=== PATIENT | male | born 1960 | race Caucasian/White ===

== ENCOUNTER 2022-07-25 10:56 | Inpatient (IN) | payer SELFPAY ==
[~2022-07-25] VITALS: Ht 170.2 cm; Wt 65.8 kg
[2022-07-25] MEDS ORDERED: SODIUM CHLORIDE FLUSH 10 ML SYR IV PRN (11:30)
[2022-07-25] MEDS ORDERED: ASPIRIN 81 MG CHEW TAB PO ONE ×4 (11:30→14:30)
[2022-07-25 12:50] LABS: BASOPHILS % 0.6 % (0.0-1.0); EOSINOPHILS # (AUTO) 0.2 (0.0-0.4); EOSINOPHILS % 3.4 % (0.0-6.0); HEMATOCRIT 34.9 % (38.2-49.6); HEMOGLOBIN 10.9 g/dL (14.0-18.0); LYMPHOCYTES # (AUTO) 1.3 (1.0-3.2); LYMPHOCYTES % 19.7 % (18.0-39.1); MEAN CORPUSCULAR HEMOGLOBIN 29.1 pg (28-32); MEAN CORPUSCULAR HGB CONC 31.2 g/dL (31-35); MEAN CORPUSCULAR VOLUME 93.1 fL (81-99); MONOCYTES # (AUTO) 0.6 (0.2-0.8); MONOCYTES % 9.2 % (4.4-11.3); NEUTROPHILS # (AUTO) 4.3 (2.1-6.9); NEUTROPHILS % 66.8 % (38.7-80.0); PLATELET COUNT 287 x10e3/uL (140-360); RED BLOOD COUNT 3.75 x10e6/uL (4.3-5.7); RED CELL DISTRIBUTION WIDTH 11.8 % (11.7-14.4)
[2022-07-25 13:01] LABS: ALBUMIN 3.1 g/dL (3.5-5.0); ALBUMIN/GLOBULIN RATIO 0.8 (0.8-2.0); ANION GAP 13.8 mmol/L (8-16); CALCIUM 8.7 mg/dL (8.4-10.2); CREATININE, SERUM 0.88 mg/dL (0.72-1.25); POTASSIUM 3.8 mmol/L (3.5-5.1)
[2022-07-25] MEDS ORDERED: ONDANSETRON HCL INJ 2MG/ML 2ML 2 MG/ML VIAL IV PRN ×2 (14:30→18:15)
[2022-07-25] MEDS ORDERED: SODIUM CHLORIDE FLUSH 10 ML SYR INJ PRN (14:30)
[2022-07-25 17:19] LABS: CREATINE KINASE MB 1.7 ng/mL (0-5.0)
[2022-07-25 17:28] VITALS: BP 161/96
[2022-07-25 17:33] VITALS: BP 161/96
[2022-07-25 17:34] VITALS: BP 161/96
[2022-07-25] MEDS ORDERED: METOPROLOL TARTRATE INJ 1 MG/ML VIAL IV PRN (18:15)
[2022-07-25] MEDS ORDERED: POLYETHYLENE GLYCOL 3350 17 GM PACK PO PRN (18:15)
[2022-07-25] MEDS ORDERED: ACETAMINOPHEN 325 MG TAB PO PRN (18:15)
[2022-07-25] MEDS ORDERED: TEMAZEPAM 7.5 MG CAP PO PRN (18:15)
[2022-07-25] MEDS: INSULIN REGULAR, HUMAN 100 UNIT/1 ML SQ SCH ×2 (18:30→21:19)
[2022-07-25] MEDS ORDERED: DEXTROSE 50% SYRINGE 50 ML IV PRN (18:30)
[2022-07-25] MEDS: DOCUSATE SODIUM 100 MG CAP PO SCH (18:51)
[2022-07-25] MEDS: FAMOTIDINE 20 MG TAB PO SCH (18:52)
[2022-07-25 20:00] VITALS: BP 139/84
[2022-07-25 21:00] VITALS: BP 139/84
[2022-07-25] MEDS: NYSTATIN/TRIAMCINOLONE 15 GM CR TOP SCH (21:00)
[2022-07-26] VITALS (7 sets, daily range): BP systolic 99–160; BP diastolic 62–91
[2022-07-26 05:46] LABS: BASOPHILS # (AUTO) 0.1 (0.0-0.1); BASOPHILS % 0.5 % (0.0-1.0); EOSINOPHILS # (AUTO) 0.1 (0.0-0.4); EOSINOPHILS % 1.3 % (0.0-6.0); HEMATOCRIT 35.6 % (38.2-49.6); HEMOGLOBIN 11.1 g/dL (14.0-18.0); LYMPHOCYTES # (AUTO) 1.2 (1.0-3.2); LYMPHOCYTES % 11.5 % (18.0-39.1); MEAN CORPUSCULAR HEMOGLOBIN 28.9 pg (28-32); MEAN CORPUSCULAR HGB CONC 31.2 g/dL (31-35); MEAN CORPUSCULAR VOLUME 92.7 fL (81-99); MONOCYTES # (AUTO) 0.8 (0.2-0.8); MONOCYTES % 7.9 % (4.4-11.3); NEUTROPHILS # (AUTO) 8.2 (2.1-6.9); NEUTROPHILS % 78.3 % (38.7-80.0); PLATELET COUNT 260 x10e3/uL (140-360); RED BLOOD COUNT 3.84 x10e6/uL (4.3-5.7); RED CELL DISTRIBUTION WIDTH 11.6 % (11.7-14.4)
[2022-07-26 06:06] LABS: CREATINE KINASE MB 2.2 ng/mL (0-5.0)
[2022-07-26 06:16] LABS: MAGNESIUM 1.9 MG/DL (1.3-2.1); PHOSPHORUS 3.9 MG/DL (2.3-4.7)
[2022-07-26 06:30] LABS: ALBUMIN 2.8 g/dL (3.5-5.0); ALBUMIN/GLOBULIN RATIO 0.7 (0.8-2.0); ANION GAP 15.2 mmol/L (8-16); CALCIUM 8.9 mg/dL (8.4-10.2); CREATININE, SERUM 0.95 mg/dL (0.72-1.25); POTASSIUM 4.2 mmol/L (3.5-5.1)
[2022-07-26 06:36] LABS: THYROID STIMULATING HORMONE 2.477 uIU/mL (0.350-4.940)
[2022-07-26] MEDS: INSULIN REGULAR, HUMAN 100 UNIT/1 ML SQ SCH ×2 (07:30→11:12)
[2022-07-26] MEDS: NYSTATIN/TRIAMCINOLONE 15 GM CR TOP SCH ×3 (08:29→21:25)
[2022-07-26] MEDS: FAMOTIDINE 20 MG TAB PO SCH ×2 (08:30→17:59)
[2022-07-26] MEDS: DOCUSATE SODIUM 100 MG CAP PO SCH ×2 (08:31→17:00)
[2022-07-26 15:27] LABS: CREATINE KINASE 77 IU/L (30-200)
[2022-07-26] MEDS: METFORMIN HCL 500 MG TAB PO SCH (18:00)
[2022-07-27] VITALS: BP 95/64
[2022-07-27 04:00] VITALS: BP 140/81
[2022-07-27 07:49] VITALS: BP 140/81
[2022-07-27 08:00] VITALS: BP 110/82
[2022-07-27] MEDS: NYSTATIN/TRIAMCINOLONE 15 GM CR TOP SCH ×3 (09:00→21:00)
[2022-07-27] MEDS: DOCUSATE SODIUM 100 MG CAP PO SCH ×2 (09:00→16:30)
[2022-07-27] MEDS: METFORMIN HCL 500 MG TAB PO SCH ×2 (09:11→16:34)
[2022-07-27] MEDS: LISINOPRIL 2.5 MG TAB PO SCH (09:11)
[2022-07-27] MEDS: FAMOTIDINE 20 MG TAB PO SCH ×2 (09:11→16:34)
[2022-07-27] MEDS ORDERED: ASPIRIN 325 MG TAB EC PO ONE (09:50)
[2022-07-27] MEDS ORDERED: IOPAMIDOL 370 MG/ML 100 ML INFUS..BTL INJ ONE (12:26)
[2022-07-27] MEDS ORDERED: TEMAZEPAM 15 MG CAP PO PRN (15:45)
[2022-07-27 16:39] VITALS: BP 128/83
[2022-07-27 20:00] VITALS: BP 130/83
[2022-07-28] VITALS: BP 113/63
[2022-07-28 04:00] VITALS: BP 149/73
[2022-07-28 05:00] LABS: BASOPHILS # (AUTO) 0.1 (0.0-0.1); BASOPHILS % 0.7 % (0.0-1.0); EOSINOPHILS # (AUTO) 0.3 (0.0-0.4); EOSINOPHILS % 3.6 % (0.0-6.0); HEMATOCRIT 34.5 % (38.2-49.6); HEMOGLOBIN 10.6 g/dL (14.0-18.0); LYMPHOCYTES # (AUTO) 1.8 (1.0-3.2); LYMPHOCYTES % 20.8 % (18.0-39.1); MEAN CORPUSCULAR HGB CONC 30.7 g/dL (31-35); MEAN CORPUSCULAR VOLUME 94.5 fL (81-99); MONOCYTES # (AUTO) 0.7 (0.2-0.8); MONOCYTES % 8.5 % (4.4-11.3); NEUTROPHILS # (AUTO) 5.7 (2.1-6.9); NEUTROPHILS % 66.1 % (38.7-80.0); PLATELET COUNT 269 x10e3/uL (140-360); RED BLOOD COUNT 3.65 x10e6/uL (4.3-5.7); RED CELL DISTRIBUTION WIDTH 11.9 % (11.7-14.4)
[2022-07-28 05:25] LABS: ALBUMIN 2.9 g/dL (3.5-5.0); ALBUMIN/GLOBULIN RATIO 0.8 (0.8-2.0); ANION GAP 12.2 mmol/L (8-16); CALCIUM 8.6 mg/dL (8.4-10.2); CREATININE, SERUM 0.89 mg/dL (0.72-1.25); POTASSIUM 4.2 mmol/L (3.5-5.1)
[2022-07-28 05:45] LABS: THYROID STIMULATING HORMONE 4.663 uIU/mL (0.350-4.940)
[2022-07-28] MEDS: FAMOTIDINE 20 MG TAB PO SCH ×2 (07:30→17:41)
[2022-07-28 08:00] VITALS: BP 149/73
[2022-07-28] MEDS: METFORMIN HCL 500 MG TAB PO SCH ×2 (08:00→17:42)
[2022-07-28 08:50] VITALS: BP 97/75
[2022-07-28] MEDS: NYSTATIN/TRIAMCINOLONE 15 GM CR TOP SCH ×3 (09:00→22:06)
[2022-07-28] MEDS: DOCUSATE SODIUM 100 MG CAP PO SCH ×2 (09:00→17:00)
[2022-07-28] MEDS ORDERED: REGADENOSON 0.4 MG/5 ML SYR IV ONE (10:09)
[2022-07-28] MEDS ORDERED: ONDANSETRON HCL 4 MG ORAL DISINTEGRATING TAB PO PRN (11:30)
[2022-07-28 16:52] VITALS: BP 152/85
[2022-07-28] MEDS: ASPIRIN 81 MG ENTERIC COATED PO SCH (17:39)
[2022-07-28] MEDS: LISINOPRIL 2.5 MG TAB PO SCH (17:39)
[2022-07-28] MEDS ORDERED: SODIUM CHLORIDE 0.9% 250ML 250 ML ONE (17:59)
[2022-07-28 20:00] VITALS: BP 121/76
[2022-07-29 01:49] VITALS: BP 114/68
[2022-07-29 04:00] VITALS: BP 139/72
[2022-07-29] MEDS ORDERED: METFORMIN HCL500 MG PO (07:31)
[2022-07-29] MEDS ORDERED: Nystatin/Triamcinolone TOP (07:31)
[2022-07-29] MEDS ORDERED: LISINOPRIL2.5 MG PO (07:31)
[2022-07-29] MEDS ORDERED: ASPIRIN EC81 MG PO (07:31)
[2022-07-29] MEDS ORDERED: ACETAMINOPHEN325 M1 PO (07:31)
[2022-07-29] MEDS ORDERED: ONDANSETRON ODT4 MG PO (07:31)
[2022-07-29 08:09] VITALS: BP 139/72
[2022-07-29 08:17] VITALS: BP 109/74
[2022-07-29] MEDS: FAMOTIDINE 20 MG TAB PO SCH (08:26)
[2022-07-29] MEDS: METFORMIN HCL 500 MG TAB PO SCH (08:27)
[2022-07-29] MEDS: LISINOPRIL 2.5 MG TAB PO SCH (08:27)
[2022-07-29] MEDS: DOCUSATE SODIUM 100 MG CAP PO SCH (08:27)
[2022-07-29] MEDS: NYSTATIN/TRIAMCINOLONE 15 GM CR TOP SCH (08:27)
[2022-07-29] MEDS: ASPIRIN 81 MG ENTERIC COATED PO SCH (09:35)
== END 2022-07-29 10:23 | disposition home or self-care (01) | DRG 392 ==
LOC: ER 11:04 → ERHOLD 14:28 → MED/SURG2 17:07 → OBSVTOIN 07-27 09:01
PROVIDERS: ADMIT Internal Medicine; ATTEND Internal Medicine
DX: R13.12 Dysphagia, oropharyngeal phase (principal); J98.11 Atelectasis; R07.89 Other chest pain; I10 Essential (primary) hypertension; E11.65 Type 2 diabetes mellitus with hyperglycemia; K52.9 Noninfective gastroenteritis and colitis, unspecified; E11.69 Type 2 diabetes mellitus with other specified complication; E78.2 Mixed hyperlipidemia; Z53.29 Procedure and treatment not carried out because of patient's decision for other reasons
CPT/HCPCS: 36415; 71045; 71260; 74230; 78452; 80053; 80061; 82550; 82553; 82948; 83036; 83735; 83880; 84100; 84443; 84484; 85025; 87400; 93005; 93017; 93306; 94760; 94799; 96372; 99252; 99284; A9502; G0378; J0456; J0696; J1817; J7050; J7799; Q9967